=== PATIENT | male | born 1985 | race Caucasian/White ===

== ENCOUNTER 2023-08-09 08:14 | Outpatient (CLI) | payer BC | END 2023-08-09 08:15 | disposition home or self-care (01) | LOC: BICMRI 08:14 | PROVIDERS: ATTEND Orthopaedic Surgery Hand Surgery | DX: M48.02 Spinal stenosis, cervical region (principal); M47.812 Spondylosis without myelopathy or radiculopathy, cervical region | CPT/HCPCS: 72141 ==